=== PATIENT | male | born 1990 | race Caucasian/White ===

== ENCOUNTER → 2020-06-06 12:17 | Outpatient (CLI) | payer BC, SELFPAY ==
--- NOTE | ~2020-06-06 | CT_ITS ---
EXAMINATION: CT abdomen pelvis w con DATE: 06/06/2020 12:45 INDICATION: Left lower quadrant abdominal pain, left flank pain, left testicle pain. Abdominal bloati ng. TECHNIQUE: Computed tomography (CT) of the abdomen and pelvis was performed with 100 cc Omnipaque 350 intravenous contrast. Automated exposure control and iterative reconstruction technique were employe d. Exam dose: 493.81 mGy-cm total exam DLP. COMPARISON: None. FINDINGS: The lung bases are clear of infiltrate or consolidation. Normal heart size. No pericardial or pleural effusion. The liver, gallbladder, bile ducts, spleen, pancreas, pancreatic duct, and adrenal glands and kidneys appear normal. No urinary tract calculus or hydroureteronephrosis is detected. The urinary bladder i s unremarkable. Normal caliber of the abdominal aorta. No intraperitoneal or retroperitoneal or pelvic mass lesion or adenopathy or ascites. Normal appendix. There are some fluid distended small bowel segments, particularly in the distal ileu m, with occasional air-fluid levels. There is a prominent amount fecal material within the colon. No bowel obstruction is evident. No bowel wall thickening, pneumatosis or intraperitoneal free air. Included skeletal structures are unremarkable other than some Schmorl's nodes of the thoracic and lum bar spine and sacrum, moderate loss of interspace height at L5-S1. IMPRESSION: Prominent amount fecal material in the colon and some fluid-distended small bowel, parti cularly distal ileum, with occasional air-fluid levels. Enteritis is not excluded Normal appendix No urinary tract calculus or hydronephrosis Reviewed, dictated and finalized at [facility]. Reviewed, dictated and finalized at [facility]. IMPRESSION: Prominent amount fecal material in the colon and some fluid-disten ded small bowel, particularly distal ileum, with occasional air-fluid levels. E nteritis is not excluded Normal appendix No urinary tract calculus or hydronephrosis
== END ==
PROVIDERS: PCP Physician Assistant; Visit Provider Physician Assistant
DX: R10.12 Left upper quadrant pain (principal)
CPT/HCPCS: 74177; Q9967